=== PATIENT | male | born 1980 | race Caucasian/White ===

== ENCOUNTER 2017-01-09 04:11 | Emergency (ER) | payer BC, OTHER ==
[~2017-01-09] VITALS: Ht 188 cm; Wt 90.7 kg
--- NOTE | 2017-01-09 04:18 | NUR ---
PT WALKED INTO ER C/O ON UPPERBACK. HERE FOR WORSENING PAIN IN THE LAST FOUR DAYS... PT IS ALERT, ORIENTED X 4, NO RESP DISTRESS NOTED OR REPORTED UPON ASSESSMENT... MD AT BEDSIDE...
--- NOTE | 2017-01-09 04:55 | NUR ---
ER MD AT BEDSIDE PERFORMING I and D, PT TOLERATED PROCEDURE WELL...
[2017-01-09] MEDS ORDERED: LIDOCAINE HCL 1% 20 ML VIAL IJ ONE (05:00)
--- NOTE | 2017-01-09 05:39 | NUR ---
Patient discharged to home in stable conditon. Written and verbal after care instructions given. Patient verbalizes understanding of instructions. Pt walked out of ER unassisted with belongings at side..
[2017-01-09 05:40] VITALS: BP 121/91
== END 2017-01-09 05:40 | disposition home or self-care (01) ==
LOC: ER 04:14
DX: L02.212 Cutaneous abscess of back [any part, except buttock and flank] (principal); F10.20 Alcohol dependence, uncomplicated; F17.200 Nicotine dependence, unspecified, uncomplicated
CPT/HCPCS: 10061; 99284; A4663; J3490

== ENCOUNTER 2017-01-11 09:48 | Emergency (ER) | payer BC ==
[~2017-01-11] VITALS: Ht 188 cm; Wt 90.7 kg
== END 2017-01-11 10:10 | disposition home or self-care (01) ==
LOC: ER 09:49
DX: Z48.01 Encounter for change or removal of surgical wound dressing (principal); F10.20 Alcohol dependence, uncomplicated; F17.200 Nicotine dependence, unspecified, uncomplicated
CPT/HCPCS: A4663